=== PATIENT | female | born 1985 | race Caucasian/White ===

== ENCOUNTER → 2016-09-23 | Outpatient (CLI) | payer BC ==
--- NOTE | 2016-09-23 16:02 | MAMMOGRAPHY REPORT ---
ULTRASOUND OF RIGHT BREAST: 09/23/2016 CLINICAL HISTORY: The patient reports a palpable right breast lump for approximately 1-2 months. COMPARISON: Comparison is made to exam dated: 11/12/2010 ultrasound - [facility]. TECHNIQUE: Real-time targeted ultrasound of the right breast was performed. FINDINGS: Real-time, high resolution targeted ultrasound was performed of the area of the palpable lump pointe d out by the patient in the right breast at 3:00 subareolar/periareolar region. Sonographically nor mal tissue is seen at the site of the palpable lump, without evidence of a mass or other suspicious sonographic abnormality. IMPRESSION: ACR BI-RADS CATEGORY 4A: LOW SUSPICION FOR MALIGNANCY - FOLLOW-UP RECOMMENDED No sonographic abnormality at the site of the palpable right 3:00 breast lump. Given that the lump is newly palpable, recommend fine-needle aspiration by the pathology department for further evaluati on. A phone call was made to the physician's office to confirm faxed results were received. The patient was verbally notified of the results. Tammie Lenz M.D. ah/:09/23/2016 14:15:07 Spring Machine Operator: Roopa ARTHUR(James)(Shikha), [facility] letter sent: Abnormal 4/5 BI-RADS Code: ACR BI-RADS Category 4A: Low Suspicion For Malignancy
--- NOTE | 2016-09-27 09:29 | CODING QUERY NO DIAGNOSIS ---
TREATMENT RENDERED WITHOUT A DIAGNOSIS Dr. Hammond, To promote full compliance with coding requirements relating to patient care, physician participation is requested in all cases of [employer] professor uncertainty. Please assist us with providing a diagnosis/symptom for the test(s) below: A diagnosis/symptom was not documented on your Order. A valid diagnosis/symptom is required to bill all insurances. Please remember that we are unable to code a diagnosis of rule out, probable, possible, questionable, or suspected. Tests that require a diagnosis: * ULTRASOUND BREAST LIMITED DIAGNOSIS: DATE OF SERVICE: 09/23/16 Provider Signature: Date: Thank you Chencho Prasad [facility] Information Management Once completed, please kindly fax back to [phone] For questions please call [phone]
== END | disposition home or self-care (01) ==
LOC: C.MAMM 13:41
PROVIDERS: ATTEND Family Medicine
DX: N63 Unspecified lump in breast (principal)

== ENCOUNTER → 2016-10-04 | Outpatient (CLI) | payer BC | END | disposition home or self-care (01) | LOC: C.PATH 08:46 | PROVIDERS: ATTEND Family Medicine | DX: N63 Unspecified lump in breast (principal) ==

== ENCOUNTER 2016-12-15 12:57 | Emergency (ER) | payer BC ==
[~2016-12-15] VITALS: Ht 157.5 cm; Wt 66.0 kg
[2016-12-15 13:01] VITALS: TEMP 37.1; Ht 157.5 cm; Wt 66.0 kg
--- NOTE | 2016-12-15 13:42 | EMERGENCY ROOM VISIT NOTE ---
History Report prepared by Jena: Pablo Fan Under the Supervision of: Dr. Asuncion Jeffery D.O. First contact with patient: 13:20 Chief Complaint: CARDIAC ASSESSMENT Stated Complaint: CHEST PAIN, LEFT ARM PAIN, FACE NUMB Nursing Triage Summary: Pt reports she was sitting at work when she became pale and dizzy with left sided numbness and pain in her chest. All symptoms have resolved except numbness in the left side of her face. Denies breathign problems. Pt anxious in bed History of Present Illness The patient is a 31 year old female who presents to the Emergency Room with complaints of an episode of chest pain that occurred an hour ago. She says that she was sitting in a meeting with her boss and a couple coworkers, when all of a sudden, she started feeling dizzy and shaky, with chest pain. The left side of her face went numb, and she got a cold and tingly feeling on the left side of her body. She also had a headache. The patient says that her coworkers told her that her skin was pale. She then decided to come here for evaluation. The patient notes that nothing about the meeting was stressful. She says that she has had nothing like this before. The patient states that her chest pain is gone , but she still has the headache (around the back of her head above her neck) and the tingly, cold sensation on her left side. The patient adds that she felt normal until the episode occurred. She did eat breakfast but hadn't eat lunch yet. She denies any recent cough or cold symptoms, urinary symptoms, change in bowel movements, or seasonal allergies. She also denies any change in activities or recent travels. The patient does not take any daily medications. She has no chance of . The patient does not drink alcohol or use tobacco products. She states that she has a family history of heart problems. The patient is currently mid-cycle, and she says that her headache currently is similar to ones she get during her period. Source of History: patient Onset: An hour ago Position: chest Quality: other (pain) Timing: other (episode) Associated Symptoms: + headache, + numbness (left sided), No cough, No urinary symptoms Note: Associated symptoms: Left-sided tingling and cold feeling. Skin was pale. Denies any recent cold symptoms, change in bowel movements, or seasonal allergies. Review of Systems See HPI for pertinent positives & negatives. A total of 10 systems reviewed and were otherwise negative. Past Medical & Surgical Medical Problems: (1) Pneumonia Surgical Problems: (1) Appendectomy (2) section Family History Cancer Hypertension Social History Smoking Status: Never Smoker Smokeless Tobacco Use: No Alcohol Use: none Marital Status: Housing Status: lives with family Occupation Status: employed Current/Historical Medications No Active Prescriptions or Reported Meds Allergies Coded Allergies: Ciprofloxacin (Verified Allergy, Unknown, ., 06/14/16) Quinolones (Verified Allergy, Unknown, UNKNOWN, 03/30/15) Physical Exam Vital Signs Date Time Temp Pulse Resp B/P (MAP) Pulse Ox O2 Delivery O2 Flow Rate FiO2 12/15/16 15:34 81 18 104/69 92 12/15/16 13:29 97 12/15/16 13:18 100 Room Air 12/15/16 13:01 37.1 96 16 138/83 97 Room Air Physical Exam GENERAL: alert, well appearing, well nourished, no distress, non-toxic EYE EXAM: normal conjunctiva, PERRL and EOM's grossly intact OROPHARYNX: no exudate, no erythema, lips, buccal mucosa, and tongue normal and mucous membranes are moist NECK: supple, no nuchal rigidity, no adenopathy, non-tender LUNGS: Clear to auscultation. Normal chest wall mechanics HEART: no murmurs, S1 normal and S2 normal ABDOMEN: abdomen soft, non-tender, normo-active bowel sounds, no masses, no rebound or guarding. BACK: Back is symmetrical on inspection and there is no deformity, no midline tenderness, no CVA tenderness. SKIN: no rashes and no bruising UPPER EXTREMITIES: upper extremities are grossly normal. LOWER EXTREMITIES: No pitting edema. NEURO EXAM: Normal sensorium, cranial nerves II-XII grossly intact, normal speech, no gross weakness of arms, no gross weakness of legs. No drift. Finger to nose intact. Gross sensation intact. Medical Decision & Procedures ER Provider Diagnostic Interpretation: X-ray results have been interpreted by the radiologist and reviewed by me. CHEST ONE VIEW PORTABLE CLINICAL HISTORY: palpitations ATYPICAL CHEST PAIN COMPARISON STUDY: No previous studies for comparison. FINDINGS: The cardiac and mediastinal contours are normal. There is no evidence of focal pulmonary consolidation. There is no evidence of failure. No pleural effusions are visualized.[ IMPRESSION: No active disease in the chest. Electronically signed by: Jorge Garcia M.D 12/15/2016 2:16 PM Dictated Date/Time: 12/15/2016 2:16 PM Laboratory Results 12/15/16 13:52 Red Blood Count 4.76, Mean Corpuscular Volume 86.6, Mean Corpuscular Hemoglobin 30.0, Mean Corpuscular Hemoglobin Concent 34.7, Mean Platelet Volume 10.6, Neutrophils (%) (Auto) 60.4, Lymphocytes (%) (Auto) 31.6, Monocytes (%) (Auto) 7.3, Eosinophils (%) (Auto) 0.3, Basophils (%) (Auto) 0.2, Neutrophils # (Auto) 3.80, Lymphocytes # (Auto) 1.99, Monocytes # (Auto) 0.46, Eosinophils # (Auto) 0.02, Basophils # (Auto) 0.01 12/15/16 13:52 Test 12/15/16 13:52 12/15/16 13:58 White Blood Count 6.29 K/uL (4.8-10.8) Red Blood Count 4.76 M/uL (4.2-5.4) Hemoglobin 14.3 g/dL (12.0-16.0) Hematocrit 41.2 % (37-47) Mean Corpuscular Volume 86.6 fL (80-100) Mean Corpuscular Hemoglobin 30.0 pg (25-34) Mean Corpuscular Hemoglobin Concent 34.7 g/dl (32-36) Platelet Count 217 K/uL (130-400) Mean Platelet Volume 10.6 fL (7.4-10.4) Neutrophils (%) (Auto) 60.4 % Lymphocytes (%) (Auto) 31.6 % Monocytes (%) (Auto) 7.3 % Eosinophils (%) (Auto) 0.3 % Basophils (%) (Auto) 0.2 % Neutrophils # (Auto) 3.80 K/uL (1.4-6.5) Lymphocytes # (Auto) 1.99 K/uL (1.2-3.4) Monocytes # (Auto) 0.46 K/uL (0.11-0.59) Eosinophils # (Auto) 0.02 K/uL (0-0.5) Basophils # (Auto) 0.01 K/uL (0-0.2) RDW Standard Deviation 42.3 fL (36.4-46.3) RDW Coefficient of Variation 13.3 % (11.5-14.5) Immature Granulocyte % (Auto) 0.2 % Immature Granulocyte # (Auto) 0.01 K/uL (0.00-0.02) Anion Gap 9.0 mmol/L (3-11) Est Creatinine Clear Calc Drug Dose 86.0 ml/min Estimated GFR () 105.8 Estimated GFR (Non- 91.3 BUN/Creatinine Ratio 14.1 (10-20) Calcium Level 8.8 mg/dl (8.5-10.1) Total Bilirubin 0.9 mg/dl (0.2-1) Aspartate Amino Transf (AST/SGOT) 12 U/L (15-37) Alanine Aminotransferase (ALT/SGPT) 16 U/L (12-78) Alkaline Phosphatase 58 U/L (45-117) Troponin I < 0.015 ng/ml (0-0.045) Total Protein 7.4 gm/dl (6.4-8.2) Albumin 4.2 gm/dl (3.4-5.0) Globulin 3.2 gm/dl (2.5-4.0) Albumin/Globulin Ratio 1.3 (0.9-2) Thyroid Stimulating Hormone (TSH) 0.907 uIu/ml (0.300-4.500) Urine Color YELLOW Urine Appearance CLEAR (CLEAR) Urine pH 5.5 (4.5-7.5) Urine Specific [place] 1.009 (1.000-1.030) Urine Protein NEG (NEG) Urine Glucose (UA) NEG (NEG) Urine Ketones NEG (NEG) Urine Occult Blood NEG (NEG) Urine Nitrite NEG (NEG) Urine Bilirubin NEG (NEG) Urine Urobilinogen NEG (NEG) Urine Leukocyte Esterase NEG (NEG) Laboratory results per my review. ECG Indication: chest pain Rate (beats per minute): 91 Rhythm: normal sinus Findings: no acute ischemic change, no ectopy, other (normal axis, normal intervals) ED Course 1331: The patient was evaluated in room C12B. A complete history and physical exam was performed. 1503: Upon reevaluation, the patient is feeling better. I discussed the findings and the treatment plan with the patient. She declined CT head due to hendricks/subjective paresthesias. She verbalizes agreement and understanding. She was discharged home. Medical Decision Prior records/ancillary studies reviewed. Triage Nursing notes reviewed. Differential diagnosis: Etiologies such as cardiac ischemia, aortic dissection, pulmonary embolism, pneumonia, pneumothorax, musculoskeletal, infections, pericarditis, myocarditis , esophageal rupture, gastrointestinal, as well as others were entertained. Blood pressure screening: Patient was found to have normal blood pressure on screening and does not require follow-up. Pt well appearing here despite complaints. Complaints almost completely resolved by time of my evaluation. No hx of syncope. No recent illness or new meds. No travel. Pt with normal nonfocal neuro exam at bedside. Sensory findings subjective only. Discussed neuroimaging with pt and she declined. Would like to go home and monitor her sx. Discussed possible ddx. Discussed f/ u with PCP, sx to watch/return for, she verbalized understanding and was agreeable with plan. VS stable here, ambulated to the bathroom with a steady gait. No risk factors for heart disease or vascular etiology, no risk factors for stroke or PE, can r/o PE with PERC. Doubt occult infectious etiology. Impression Primary Impression: Palpitations Additional Impression: Near syncope Scribe Attestation The scribe's documentation has been prepared under my direction and personally reviewed by me in its entirety. I confirm that the note above accurately reflects all work, treatment, procedures, and medical decision making performed by me. Departure Information Dispostion Home / Self-Care Prescriptions No Active Prescriptions or Reported Meds Referrals Federico Hammond M.D. (PCP) Patient Instructions My [facility] Additional Instructions Please follow-up with your family doctor and discuss with them the events and symptoms of today. If you have any recurrent or worsening headache, develop vision changes, dizziness, vomiting, palpitations, trouble breathing, or you have any other new concerns, please return the emergency room immediately. Problem Qualifiers
[2016-12-15 14:05] LABS: BASO % 0.2 %; BASO ABS # 0.01 K/uL (0-0.2); COMPLETE YES; EOS % 0.3 %; HEMATOCRIT 41.2 % (37-47); IG% 0.2 %; LYMPH % 31.6 %; LYMPH ABS # 1.99 K/uL (1.2-3.4); MEAN CELL VOLUME 86.6 fL (80-100); MEAN CORPUSCULAR HGB CONC 34.7 g/dl (32-36); MEAN PLATELET VOLUME 10.6 fL (7.4-10.4); MONO % 7.3 %; NEUT % 60.4 %; PLATELET COUNT 217 K/uL (130-400); RED BLOOD COUNT 4.76 M/uL (4.2-5.4); WHITE BLOOD COUNT 6.29 K/uL (4.8-10.8)
[2016-12-15 14:07] LABS: URINE APPEARANCE CLEAR (CLEAR); URINE BILIRUBIN NEG (NEG); URINE COLOR YELLOW; URINE NITRITE NEG (NEG); URINE PH 5.5 (4.5-7.5); URINE SPECIFIC GRAVITY 1.009 (1.000-1.030); UROBILINOGEN NEG (NEG); ZZUR CULT IF INDIC CLEAN CATCH NO
[2016-12-15 14:09] LABS: MANUAL MICROSCOPIC REQUIRED? NO; REVIEW REQ? NO
--- NOTE | 2016-12-15 14:18 | DIAGNOSTIC IMAGING REPORT ---
CHEST ONE VIEW PORTABLE CLINICAL HISTORY: palpitations ATYPICAL CHEST PAIN COMPARISON STUDY: No previous studies for comparison. FINDINGS: The cardiac and mediastinal contours are normal. There is no evidence of focal pulmonary consolidation. There is no evidence of failure. No pleural effusions are visualized.[ IMPRESSION: No active disease in the chest. Electronically signed by: Jorge Garcia M.D. 12/15/2016 2:16 PM Dictated Date/Time: 12/15/2016 2:16 PM
[2016-12-15 14:29] LABS: ALT/SGPT 16 U/L (12-78); BLOOD UREA NITROGEN 12 mg/dl (7-18); BUN/CREATININE RATIO 14.1 (10-20); CARBON DIOXIDE 24 mmol/L (21-32); CHLORIDE 109 mmol/L (98-107); CREATININE 0.86 mg/dl (0.60-1.20); GLUCOSE 80 mg/dl (70-99); POTASSIUM 3.9 mmol/L (3.5-5.1); SODIUM 142 mmol/L (136-145)
[2016-12-15 14:39] LABS: ALB/GLOB RATIO 1.3 (0.9-2); ALKALINE PHOSPHATASE 58 U/L (45-117); AST/SGOT 12 U/L (15-37); THYROID STIMULATING HORMONE 0.907 uIu/ml (0.300-4.500)
[2016-12-15 15:01] LABS: CALCIUM 8.8 mg/dl (8.5-10.1)
[2016-12-15 15:34] VITALS: BP 104/69; PULSE 81; O2SAT 92
== END 2016-12-15 15:53 | disposition home or self-care (01) ==
LOC: C.EDB 12:59 → C.EDC 15:53
DX: R00.2 Palpitations (principal); R55 Syncope and collapse; Z98.890 Other specified postprocedural states; Z88.2 Allergy status to sulfonamides; Z88.8 Allergy status to other drugs, medicaments and biological substances; Z80.9 Family history of malignant neoplasm, unspecified; Z82.49 Family history of ischemic heart disease and other diseases of the circulatory system

== ENCOUNTER → 2017-09-07 | Outpatient (CLI) | payer OTHER | END | disposition home or self-care (01) | LOC: C.PAPS 13:21 | PROVIDERS: ATTEND Physician Assistant | DX: Z01.419 Encounter for gynecological examination (general) (routine) without abnormal findings (principal) ==